=== PATIENT | female | born 1940 | race Caucasian/White ===

== ENCOUNTER 2019-10-24 09:39 | Outpatient (CLI) | payer OTHER, BC ==
[~2019-10-24 09:39] MED LIST: ALLEGRA ALLERG180 MG PO; CRESTOR10 MG PO; MEDROL4 MG PO
== END 2019-10-24 09:42 | disposition home or self-care (01) ==
LOC: RAD 09:39
DX: R10.84 Generalized abdominal pain (principal)
CPT/HCPCS: 74177; Q9965

== ENCOUNTER 2020-06-14 10:27 | Emergency (ER) | payer OTHER, BC ==
[~2020-06-14] VITALS: Ht 160 cm; Wt 71.7 kg
[2020-06-14] MEDS ORDERED: ASPIR 8181 MG (10:37)
== END 2020-06-14 17:37 | disposition home or self-care (01) ==
LOC: ER 10:27 → CPU-OBS 10:31 → ER 10:31
DX: I24.9 Acute ischemic heart disease, unspecified (principal); I10 Essential (primary) hypertension

== ENCOUNTER 2020-10-16 08:03 | Outpatient (CLI) | payer OTHER, BC ==
[~2020-10-16 08:03] MED LIST changes: +ASPIR 8181 MG
== END 2020-10-16 08:10 | disposition home or self-care (01) ==
LOC: TOM 08:03
PROVIDERS: ATTEND Internal Medicine Gastroenterology
DX: Z12.11 Encounter for screening for malignant neoplasm of colon (principal); K92.1 Melena

== ENCOUNTER 2022-01-27 09:57 | Outpatient (CLI) | payer OTHER | END 2022-01-27 09:58 | disposition home or self-care (01) | LOC: NUCLEAR 09:57 | PROVIDERS: ATTEND Thoracic Surgery (Cardiothoracic Vascular Surgery) | DX: I87.2 Venous insufficiency (chronic) (peripheral) (principal) ==

== ENCOUNTER 2022-01-28 10:07 | Outpatient (CLI) | payer OTHER | END 2022-01-28 10:09 | disposition home or self-care (01) | LOC: NUCLEAR 10:07 | PROVIDERS: ATTEND Thoracic Surgery (Cardiothoracic Vascular Surgery) | DX: I87.2 Venous insufficiency (chronic) (peripheral) (principal) ==

== ENCOUNTER 2023-08-26 10:04 | Outpatient (CLI) | payer OTHER | END 2023-08-26 10:06 | disposition home or self-care (01) | LOC: MAMO-SONO 10:04 | PROVIDERS: ATTEND Obstetrics & Gynecology | DX: Z12.31 Encounter for screening mammogram for malignant neoplasm of breast (principal); N60.11 Diffuse cystic mastopathy of right breast; N60.12 Diffuse cystic mastopathy of left breast ==

== ENCOUNTER 2023-08-26 11:09 | Outpatient (CLI) | payer OTHER | END 2023-08-26 11:10 | disposition home or self-care (01) | LOC: NUCLEAR 11:09 | PROVIDERS: ATTEND Obstetrics & Gynecology | DX: M81.0 Age-related osteoporosis without current pathological fracture (principal) ==